=== PATIENT | male | born 1960 | race American Indian/Alaskan Native ===

== ENCOUNTER 2018-07-31 01:04 | Emergency (ER) | payer MEDICAID ==
[2018-07-31 01:18] VITALS: BP 153/96
[2018-07-31] MEDS ORDERED: BACTRIM DS PO ONE (01:26)
[2018-07-31] MEDS ORDERED: IBUPROFEN PO ONE (01:26)
[2018-07-31] MEDS ORDERED: XYLOCAINE 1% MPF 5 mL INFILTRATI ONE (01:27)
--- NOTE | 2018-07-31 01:32 | Emergency Department Report ---
ED General Adult HPI - General Chief complaint: Extremity Injury, Upper Stated complaint: THUMB PAIN Time Seen by Provider: 07/31/18 01:10 Source: patient, EMS Mode of arrival: Ambulatory Limitations: No Limitations - History of Present Illness Initial comments: Patient is a 57-year-old -[place] male with no past medical history presents to the ED with complaint of acute onset persistent pain and swelling mildly erythematous fluctuant mass on distal right thumb after a piece of bone punctured his left arm about a month ago but the pain and is swelling which got worse in the last 1 week. Patient states that he has not been asleep tonight because of severe pain and throbbing sensation in the distal right thumb. Patient denies fever, chills, nausea, vomiting, numbness and tingling on the right thumb right hand or dizziness. MD Complaint: Swollen right thumb; infected right thumb -: Gradual, month(s) (1) Location: upper extremity (right thumb) Radiation: non-radiation Severity scale (0 -10): 6 Quality: burning, aching, sharp, constant Consistency: constant Improves with: none Worsens with: none Associated Symptoms: denies other symptoms, rash (swollen distal right thumb with severe pain). denies: confusion, chest pain, cough, diaphoresis, headaches, loss of appetite, malaise, shortness of breath, syncope, weakness Treatments Prior to Arrival: none - Related Data Previous Rx's Medication Instructions Recorded Last Taken Type Acetaminophen/Codeine [Tylenol 1 tab PO Q6H PRN #10 tab 07/31/18 Unknown Rx /Codeine # 3 tab] Ibuprofen [Motrin] 800 mg PO Q8HR PRN #20 tablet 07/31/18 Unknown Rx Sulfamethoxazole/Trimethoprim 1 each PO Q12H #20 tablet 07/31/18 Unknown Rx [Bactrim DS TAB] Allergies Allergy/AdvReac Type Severity Reaction Status Date / Time Penicillins Allergy Shortness Verified 07/31/18 01:09 of Breath ED Review of Systems ROS: Stated complaint: THUMB PAIN Other details as noted in HPI Constitutional: no symptoms reported. denies: chills, fever Eyes: denies: eye pain, eye discharge, vision change ENT: denies: ear pain, throat pain Respiratory: denies: cough, shortness of breath, wheezing Cardiovascular: denies: chest pain, palpitations Endocrine: no symptoms reported Gastrointestinal: denies: abdominal pain, nausea, diarrhea Genitourinary: denies: urgency, dysuria Musculoskeletal: joint swelling (distal right thumb pain with swelling and fluctuant rash), arthralgia (right thumb pain and swelling). denies: back pain Skin: as per HPI, rash (distal right thumb), change in color (mildly erythematous maculoapular fluctuant rash on distal right thumb), change in hair/nails (distal right thumb). denies: lesions Neurological: denies: headache, weakness, paresthesias Psychiatric: denies: anxiety, depression Hematological/Lymphatic: denies: easy bleeding, easy bruising ED Past Medical Hx - Past Medical History Previous Medical History?: No - Surgical History Past Surgical History?: Yes Additional Surgical History: Abdominal surgery after an injury 2004 - Social History Smoking Status: Current Every Day Smoker - Medications Home Medications: Home Medications Medication Instructions Recorded Confirmed Last Taken Type Acetaminophen/Codeine [Tylenol 1 tab PO Q6H PRN #10 tab 07/31/18 Unknown Rx /Codeine # 3 tab] Ibuprofen [Motrin] 800 mg PO Q8HR PRN #20 tablet 07/31/18 Unknown Rx Sulfamethoxazole/Trimethoprim 1 each PO Q12H #20 tablet 07/31/18 Unknown Rx [Bactrim DS TAB] ED Physical Exam - General Limitations: No Limitations General appearance: alert, in no apparent distress - Head Head exam: Present: atraumatic, normocephalic, normal inspection - Eye Eye exam: Present: normal appearance, PERRL. Absent: scleral icterus, conjunctival injection, nystagmus, periorbital swelling - ENT ENT exam: Present: normal exam, normal orophraynx, mucous membranes moist, TM's normal bilaterally, normal external ear exam - Neck Neck exam: Present: normal inspection, full ROM - Respiratory Respiratory exam: Present: normal lung sounds bilaterally. Absent: respiratory distress, wheezes, rales, rhonchi, stridor, chest wall tenderness, prolonged expiratory - Cardiovascular Cardiovascular Exam: Present: regular rate, normal rhythm, normal heart sounds. Absent: systolic murmur, diastolic murmur, rubs, gallop - GI/Abdominal GI/Abdominal exam: Present: soft, normal bowel sounds. Absent: tenderness, guarding, rebound, hyperactive bowel sounds, hypoactive bowel sounds, organomegaly - Rectal Rectal exam: Present: deferred - Extremities Exam Extremities exam: Present: normal inspection, full ROM, tenderness (palpable right thumb tenderness due to swollen erythematous maculopapular fluctuant rash), normal capillary refill, joint swelling (distal right thumb). Absent: calf tenderness - Back Exam Back exam: Present: normal inspection, full ROM. Absent: tenderness, CVA tenderness (R), CVA tenderness (L), muscle spasm, paraspinal tenderness - Neurological Exam Neurological exam: Present: alert, oriented X3, CN II-XII intact, normal gait, reflexes normal - Psychiatric Psychiatric exam: Present: normal affect, normal mood - Skin Skin exam: Present: warm, dry, intact, rash (Erythematous, swollen, severe t jose cruz, maculoapular fluctuant rash on distal right thumb), erythema ED Course Vital Signs 07/31/18 01:15 Temperature 97.5 F L Pulse Rate 70 Respiratory 20 Rate Blood Pressure 153/96 O2 Sat by Pulse 98 Oximetry - Reevaluation(s) Reevaluation #1: 07/31/18 01:36 Patient is alert and oriented 3 and is not in any distress. Patient was treated for pain and left hand x-ray performed. The distal right thumb tendinitis and was incised and drained after applying local anesthetic to the thumb. Patient tolerated the procedure well and had the wound cleaned thoroughly and packed and dressed appropriately. Patient was discharged home on pain medications and antibiotics and advised to follow-up with his primary care physician in 7-10 days for reevaluation. Patient is advised to return to the ED immediately if symptoms get worse. - I & D Right Distal Finger Type of Procedure: Simple Site: DISTAL RIGHT THUMB Blade Size: 11 I & D Procedure: betadine prep, sterile drapes applied, sterile dressing applied, gauze wick placed Progress: Patient tolerated procedure well. Local anethesia achieved with Lidocaine 1% solution w/o epi. The wound incised with Grade # 11 Scapel blade. The wound debrided well and dressed with gauze and kerlex. Patient discharged home on pain medications and antibiotics ED Medical Decision Making - Medical Decision Making Patient is alert and oriented 3 and is not in any distress. Patient was treated for pain and left hand x-ray performed. The distal right thumb tendinitis and was incised and drained after applying local anesthetic to the thumb. Patient tolerated the procedure well and had the wound cleaned thoroughly and packed and dressed appropriately. Patient was discharged home on pain medications and antibiotics and advised to follow-up with his primary care physician in 7-10 days for reevaluation. Patient is advised to return to the ED immediately if symptoms get worse. - Differential Diagnosis cellulitis of finger; paronychia of right thumb; puncture wound Critical care attestation.: If time is entered above; I have spent that time in minutes in the direct care of this critically ill patient, excluding procedure time. ED Disposition Clinical Impression: Acute paronychia of right thumb, Cellulitis of right thumb Puncture wound of right thumb without foreign body without damage to nail Qualifiers: Encounter type: initial encounter Qualified Code(s): S61.031A - Puncture wound without foreign body of right thumb without damage to nail, initial encounter Disposition: TO HOME OR SELFCARE Is pt being admited?: No Does the pt Need Aspirin: No Condition: Stable Instructions: Puncture Wound (ED), Paronychia (ED), Cellulitis (ED) Additional Instructions: Take medications as prescribed, drink plenty of fluids and follow-up with your primary care physician is advised in 7-10 days. Return to the ED immediately if symptoms get worse. Prescriptions: Sulfamethoxazole/Trimethoprim [Bactrim DS TAB] 1 each PO Q12H #20 tablet Ibuprofen [Motrin] 800 mg PO Q8HR PRN #20 tablet PRN Reason: Pain , Severe (7-10) Acetaminophen/Codeine [Tylenol /Codeine # 3 tab] 1 tab PO Q6H PRN #10 tab PRN Reason: Pain , Severe (7-10) Referrals: [facility] [Outside] - 3-5 Days Time of Disposition: 02:38 Print Language: URUGUAYAN
--- NOTE | 2018-07-31 02:24 | XRay Report ---
PROCEDURE: XR HAND 2V RT TECHNIQUE: RIGHT hand radiographs, PA and lateral views. HISTORY: right thumb injury COMPARISONS: None . FINDINGS: Fracture (s) and/or Dislocation(s): None . Alignment: Normal . Joint space(s): Normal . Soft tissues: Normal . Bone mineralization: Normal . Foreign bodies: None . IMPRESSION: Normal Examination . This document is electronically signed by Leila Cohn DO., July 31 2018 02:22:54 AM ET
== END 2018-07-31 02:47 | disposition home or self-care (01) ==
LOC: ED 01:04
DX: S61.031A Puncture wound without foreign body of right thumb without damage to nail, initial encounter (principal); L03.011 Cellulitis of right finger; F17.200 Nicotine dependence, unspecified, uncomplicated; Z98.890 Other specified postprocedural states; Z88.0 Allergy status to penicillin; W22.8XXA Striking against or struck by other objects, initial encounter; Y93.89 Activity, other specified; Y92.89 Other specified places as the place of occurrence of the external cause; Y99.8 Other external cause status

== ENCOUNTER 2018-08-03 12:54 | Emergency (ER) | payer MEDICAID ==
[2018-08-03 13:08] VITALS: BP 133/91
[2018-08-03] MEDS ORDERED: TYLENOL #3 PO ONE (13:12)
--- NOTE | 2018-08-03 13:15 | Emergency Department Report ---
Suture/Staple Removal - [facility] Chief Complaint: Laceration/Recheck/Suture Stated Complaint: R THUMB PAIN Time Seen by Provider: 08/03/18 13:05 When Sutures or [place] Placed: 5-7 Days Ago Wound Location: right thumb ED Review of Systems ROS: Stated complaint: R THUMB PAIN Other details as noted in HPI Constitutional: denies: chills, fever Eyes: denies: eye pain, eye discharge, vision change ENT: denies: ear pain, throat pain Respiratory: denies: cough, shortness of breath, wheezing Cardiovascular: denies: chest pain, palpitations Endocrine: no symptoms reported Gastrointestinal: denies: abdominal pain, nausea, diarrhea Genitourinary: denies: urgency, dysuria Musculoskeletal: denies: back pain, joint swelling, arthralgia Skin: denies: rash, lesions Neurological: denies: headache, weakness, paresthesias Psychiatric: denies: anxiety, depression Hematological/Lymphatic: denies: easy bleeding, easy bruising ED Past Medical Hx - Past Medical History Previous Medical History?: No - Surgical History Past Surgical History?: Yes Additional Surgical History: Abdominal surgery after an injury 2004 - Social History Smoking Status: Current Every Day Smoker Substance Use Type: None - Medications Home Medications: Home Medications Medication Instructions Recorded Confirmed Last Taken Type Acetaminophen/Codeine [Tylenol 1 tab PO Q6H PRN #10 tab 07/31/18 Unknown Rx /Codeine # 3 tab] Ibuprofen [Motrin] 800 mg PO Q8HR PRN #20 tablet 07/31/18 Unknown Rx Sulfamethoxazole/Trimethoprim 1 each PO Q12H #20 tablet 07/31/18 Unknown Rx [Bactrim DS TAB] Suture Removal Exam - Exam General: Vital signs noted. No distress. Alert and acting appropriately. Wound: No Pathologic Erythema, No Tenderness, No Drainage, No Pus, No Wound Dehiscence Other Systems: All other systems reviewed and are unremarkable. ED Course Vital Signs 08/03/18 13:06 Temperature 98.0 F Pulse Rate 90 Respiratory 16 Rate Blood Pressure 133/91 O2 Sat by Pulse 97 Oximetry - Reevaluation(s) Reevaluation #1: 08/03/18 13:13 patient is speaking in full sentences with no signs of distress noted. ED Recheck MDM - Medical Decision Making 02/24 packing has been removed and patient tolerated well. No abscess or cellulitis noted. Stated is still taking medications as prescribed. Patient was instructed to Follow-up with a primary care doctor in 3-5 days or if symptoms worsen and continue return to emergency room as soon as possible. At time of discharge, the patient does not seem toxic or ill in appearance. No acute signs of distress noted. Patient agrees to discharge treatment plan of care. No further questions noted by the patient. Critical care attestation.: If time is entered above; I have spent that time in minutes in the direct care of this critically ill patient, excluding procedure time. ED Disposition Clinical Impression: Abscess packing removal Disposition: [id number] TO HOME OR SELFCARE Is pt being admited?: No Does the pt Need Aspirin: No Condition: Stable Additional Instructions: Follow-up with a primary care doctor in 3-5 days or if symptoms worsen and continue return to emergency room as soon as possible. Referrals: [facility] [Referring] - 3-5 Days KHOI PEREZ MD [Staff Physician] - 3-5 Days [facility] [Outside] - 3-5 Days Forms: Work/School Release Form(ED)
== END 2018-08-03 13:20 | disposition home or self-care (01) ==
LOC: ED 12:54
DX: S61.011D Laceration without foreign body of right thumb without damage to nail, subsequent encounter (principal); W26.8XXD Contact with other sharp object(s), not elsewhere classified, subsequent encounter; F17.200 Nicotine dependence, unspecified, uncomplicated

== ENCOUNTER 2018-11-27 18:12 | Emergency (ER) | payer MEDICAID ==
--- NOTE | 2018-11-27 18:52 | Emergency Department Report ---
Blank Doc - Documentation Documentation: 57-year-old male that presents with right finger pain and swelling after injury with metal piece. This initial assessment/diagnostic orders/clinical plan/treatment(s) is/are subject to change based on patient's health status, clinical progression and re- assessment by fellow clinical providers in the ED. Further treatment and workup at subsequent clinical providers discretion. Patient/guardians urged not to elope from the ED as their condition may be serious if not clinically assessed and managed. Initial orders include: 1- Patient sent to [facility] for further evaluation and treatment 2- xrays to r/o foreign body
--- NOTE | 2018-11-27 20:48 | XRay Report ---
RIGHT HAND 3 VIEWS INDICATION / CLINICAL INFORMATION: finger pain COMPARISON: None available. FINDINGS: BONES / JOINT(S): No acute fracture or subluxation. There is mild degenerative change in the DIP join t of the third finger SOFT TISSUES: No significant abnormality. ADDITIONAL FINDINGS: None. Signer Name: Rick Aguilar MD Signed: 11/27/2018 8:43 PM Workstation Name: [id number]
[2018-11-27] MEDS ORDERED: SULFAMETHOXAZOLE/TRIMETHOPRIM 800/160MG DS TAB PO ONE (22:38)
[2018-11-27] MEDS ORDERED: LIDOCAINE-MPF (1%) 10 MG/1 ML VIAL 5 ML INFILTRATI ONE (22:38)
[2018-11-27] MEDS ORDERED: IBUPROFEN 600 MG TAB PO ONE (22:38)
--- NOTE | 2018-11-27 23:51 | Emergency Department Report ---
ED General Adult HPI - General Chief complaint: Wound/Laceration Stated complaint: R FINGER INFECTED Time Seen by Provider: 11/27/18 18:50 Source: patient Mode of arrival: Ambulatory Limitations: No Limitations - History of Present Illness Initial comments: Patient is a 57-year-old -[place]wegian male with no past medical history who presents to the ED with complaint of acute onset persistent severely painful swollen mildly erythematous rash on right middle finger on palmar side after a sharp wire fence punctured the right middle finger about 5 days ago. Patient states that the swelling and the rash got worse in the last 3 days. Patient denies fever, chills, nausea, vomiting, numbness and tingling overnight middle finger, dizziness, headache or chest pain or shortness of breath. MD Complaint: right middle finger pain, swelling -: Sudden, days(s) (5) Location: upper extremity (right middle finger) Radiation: non-radiation Severity scale (0 -10): 7 Quality: aching, sharp Consistency: constant Improves with: none Worsens with: none Associated Symptoms: denies other symptoms. denies: confusion, chest pain, cough, fever/chills, headaches, malaise, nausea/vomiting, shortness of breath, weakness Treatments Prior to Arrival: none - Related Data Previous Rx's Medication Instructions Recorded Last Taken Type Acetaminophen/Codeine [Tylenol 1 tab PO Q6H PRN #10 tab 11/27/18 Unknown Rx /Codeine # 3 tab] Ibuprofen [Motrin 800 MG tab] 800 mg PO Q8HR PRN #20 tablet 11/27/18 Unknown Rx Sulfamethoxazole/Trimethoprim 1 each PO Q12H #20 tablet 11/27/18 Unknown Rx [Bactrim DS TAB] Allergies Allergy/AdvReac Type Severity Reaction Status Date / Time Penicillins Allergy Shortness Verified 07/31/18 01:09 of Breath ED Review of Systems ROS: Stated complaint: R FINGER INFECTED Other details as noted in HPI Constitutional: denies: chills, fever Eyes: denies: eye pain, eye discharge, vision change ENT: denies: ear pain, throat pain Respiratory: denies: cough, shortness of breath, wheezing Cardiovascular: denies: chest pain, palpitations Endocrine: no symptoms reported Gastrointestinal: denies: abdominal pain, nausea, diarrhea Genitourinary: denies: urgency, dysuria Musculoskeletal: arthralgia (painful swollen erythematous rash on right middle finger). denies: back pain, joint swelling Skin: rash (erythematous swollen painful rash on right middle finger), change in color. denies: lesions Neurological: denies: headache, weakness, paresthesias Psychiatric: denies: anxiety, depression Hematological/Lymphatic: denies: easy bleeding, easy bruising ED Past Medical Hx - Past Medical History Previous Medical History?: No - Surgical History Past Surgical History?: Yes Additional Surgical History: Abdominal surgery after an injury 2004 - Social History Smoking Status: Current Every Day Smoker Substance Use Type: Marijuana - Medications Home Medications: Home Medications Medication Instructions Recorded Confirmed Last Taken Type Acetaminophen/Codeine [Tylenol 1 tab PO Q6H PRN #10 tab 11/27/18 Unknown Rx /Codeine # 3 tab] Ibuprofen [Motrin 800 MG tab] 800 mg PO Q8HR PRN #20 tablet 11/27/18 Unknown Rx Sulfamethoxazole/Trimethoprim 1 each PO Q12H #20 tablet 11/27/18 Unknown Rx [Bactrim DS TAB] ED Physical Exam - General Limitations: No Limitations General appearance: alert, in no apparent distress - Head Head exam: Present: atraumatic, normocephalic, normal inspection - Eye Eye exam: Present: normal appearance, PERRL, EOMI Pupils: Present: normal accommodation - ENT ENT exam: Present: normal exam, normal orophraynx, mucous membranes moist, TM's normal bilaterally - Neck Neck exam: Present: normal inspection, full ROM - Respiratory Respiratory exam: Present: normal lung sounds bilaterally. Absent: respiratory distress, wheezes, rhonchi, chest wall tenderness, decreased breath sounds - Cardiovascular Cardiovascular Exam: Present: regular rate, normal rhythm, normal heart sounds. Absent: systolic murmur, diastolic murmur, rubs, gallop - GI/Abdominal GI/Abdominal exam: Present: soft, normal bowel sounds. Absent: tenderness, guarding, rebound, hyperactive bowel sounds, organomegaly - Rectal Rectal exam: Present: deferred - Extremities Exam Extremities exam: Present: normal inspection, full ROM, tenderness (palpable tenderness of right middle finger due to erythematous maculopapular flexion rash), normal capillary refill - Back Exam Back exam: Present: normal inspection. Absent: full ROM, CVA tenderness (L), muscle spasm, paraspinal tenderness - Neurological Exam Neurological exam: Present: alert, oriented X3, CN II-XII intact, normal gait, reflexes normal - Psychiatric Psychiatric exam: Present: normal affect, normal mood - Skin Skin exam: Present: warm, dry, intact, rash (erythematous maculopapular rash with fluctuance and tenderness on right middle finger on palmar side), erythema ED Course Vital Signs 11/27/18 18:45 Temperature 98.5 F Pulse Rate 79 Respiratory 16 Rate Blood Pressure 118/72 O2 Sat by Pulse 97 Oximetry - Reevaluation(s) Reevaluation #1: 11/27/18 23:52 This is a 57-year-old male who presented to the ED with painful swollen erythematous maculopapular fluctuant rash on right middle finger for 5 days. In the ED, patient is alert and oriented 3 and is not in distress. Patient was treated for pain in the right middle finger rash was cleaned thoroughly anesthetized with a local anesthetic, and incised and drained. The wound was then cleaned thoroughly and dressed appropriately and patient discharged home on pain medications and oral antibiotics and advised to follow-up with his primary care physician in 7-10 days for reevaluation or return to the ED immediately if symptoms get worse. - I & D Right Palm Finger Type of Procedure: Simple (right middle finger) Blade Size: 11 I & D Procedure: betadine prep, sterile drapes applied, sterile dressing applied, gauze wick placed Progress: Patient tolerated the procedure well. The wound was cleaned thoroughly and dressed appropriately after incision and drainage procedure. Patient was discharged home on pain medications and oral antibiotics and advised to follow- up with his primary care physician in 7-10 days for reevaluation or return to the ED immediately if symptoms get worse. ED Medical Decision Making - Medical Decision Making This is a 57-year-old male who presented to the ED with painful swollen erythematous maculopapular fluctuant rash on right middle finger for 5 days. In the ED, patient is alert and oriented 3 and is not in distress. Patient was treated for pain in the right middle finger rash was cleaned thoroughly anesthetized with a local anesthetic, and incised and drained. The wound was then cleaned thoroughly and dressed appropriately and patient discharged home on pain medications and oral antibiotics and advised to follow-up with his primary care physician in 7-10 days for reevaluation or return to the ED immediately if symptoms get worse. - Differential Diagnosis cellulitis; paronychia; puncture wound Critical care attestation.: If time is entered above; I have spent that time in minutes in the direct care of this critically ill patient, excluding procedure time. ED Disposition Clinical Impression: Paronychia of right middle finger, Cellulitis of right middle finger Disposition: TO HOME OR SELFCARE Is pt being admited?: No Does the pt Need Aspirin: No Condition: Stable Instructions: Cellulitis (ED), Paronychia (ED) Additional Instructions: Take medication with food, drink plenty of fluids and follow-up with your primary care physician in 7-10 days for reevaluation. Return to the ED immediately if symptoms get worse. Prescriptions: Sulfamethoxazole/Trimethoprim [Bactrim DS TAB] 1 each PO Q12H #20 tablet Ibuprofen [Motrin 800 MG tab] 800 mg PO Q8HR PRN #20 tablet PRN Reason: Pain , Severe (7-10) Acetaminophen/Codeine [Tylenol /Codeine # 3 tab] 1 tab PO Q6H PRN #10 tab PRN Reason: Pain , Severe (7-10) Referrals: [facility] [Outside] - 3-5 Days Time of Disposition: 23:47 Print Language: FRENCH
[2018-11-27 23:57] VITALS: BP 120/77
== END 2018-11-28 00:37 | disposition home or self-care (01) ==
LOC: ED 18:12
DX: L03.011 Cellulitis of right finger (principal); F17.200 Nicotine dependence, unspecified, uncomplicated; F12.10 Cannabis abuse, uncomplicated; Z88.0 Allergy status to penicillin; Z79.899 Other long term (current) drug therapy; Z79.1 Long term (current) use of non-steroidal anti-inflammatories (NSAID); Z98.890 Other specified postprocedural states